=== PATIENT | male | born 1930 | race Caucasian/White ===

== ENCOUNTER 2016-10-29 14:23 | Emergency (ER) | payer OTHER, BC ==
[~2016-10-29] VITALS: Ht 170.2 cm; Wt 85.6 kg
[~2016-10-29 14:23] MED LIST: ACCUPRIL40 MG PO; ALLEGRA180 MG PO; ASPIRIN EC325 MG PO; ATORVASTATIN CA40 MG PO; Allegra PO; Ancef,Kefzol IV; BACLOFEN10 MG PO; BUMETANIDE0.5 MG PO; BUMEX0.5 MG PO; Bumex PO; CARDIZEM CD,CA240 MG PO; CARDIZEM CD,CA300 MG PO; CELEBREX200 MG PO; CENTRUM SILVER1 EAC3 PO; CLEOCIN300 MG PO; CLINDAMYCIN HC300 MG PO; CYANOCOBALAM1000 MCG PO; Cardizem CD,Cartia X PO; Centrum Silver,Certa PO; Claritin,Alavart PO; Colace PO; Cozaar PO; DILTIAZEM 24HR300 MG PO; ENDOCET 5-3251 EACH PO; Ecotrin PO; FERROUS SULFAT325 MG PO; Feosol PO; Flomax PO; HI-B12/Foliplex SL; HYDROCODON-ACE1 EAC7 PO; HYZAAR 100-21 TABLET PO; Hyzaar 100-25 PO; IRON325 MG PO; KEFLEX500 MG PO; KLOR-CON 1010 ME1 PO; LIPITOR40 MG PO; LITE COAT ASPI325 M1 PO; LO-DOSE ASPIRIN81 M1 PO; LOSARTAN POTAS100 MG PO; LOSARTAN-HCTZ1 EAC1 PO; Lipitor PO; Maxipime IV; Micro-K,K-Tab,K-Dur, PO; Mobic PO; OMEPRAZOLE20 MG PO; POTASSIUM CHLO10 ME4 PO; PRILOSEC20 MG PO; PRILOSEC40 MG PO; Percocet 5/325,Endoc PO; Phenergan PO; PriLOSEC PO; Protonix PO; QUINAPRIL HCL40 MG PO; RESTORIL15 MG PO; STOOL SOFTENER100 MG PO; SUPER MULTIVIT1 EACH PO; Senokot S,Pericolace PO; TAMSULOSIN HCL0.4 MG PO; TEMAZEPAM15 MG PO; TRAMADOL HCL50 MG PO; Theragran PO; Theragran-M,Centrum, PO; ULTRAM50 MG PO; VITAMIN D1000 UNIT PO; VITAMIN D31000 UNI2 PO; VITAMIN D31000 UNIT PO; Vancomycin IV; Vitamin D PO; ZOLOFT50 MG PO; Zoloft PO; celeBREX PO; keflex
[2016-10-29 15:36] LABS: COLOR BLOODY ((YELLOW)); SPECIFIC GRAVITY 1.021 (1.000-1.030)
[2016-10-29 15:37] LABS: ADD MIUA? YES; BILIRUBIN NEGATIVE; BLOOD LARGE; GLUCOSE (STRIP) NEGATIVE; KETONES NEGATIVE; LEUKOCYTES NEGATIVE; NITRITE NEGATIVE; PH, URINE 6.5 (5-8); PROTEIN (STRIP) 2000; UROBILINOGEN 0.2 MG/DL (0.2-1.0)
[2016-10-29 15:48] LABS: HEMATOCRIT 38.7 % (38.0-50.0); MCH 29.5 PG (29.0-34.0); MCHC 32.3 G/DL (30.0-36.0); MCV 91.3 FL (86-99); MEAN PLAT.VOLUME 11.1 uM^3 (9.0-12.4); PLATELET COUNT 143 K/uL (156-360); RBC DIS.WIDTH-CV 13.6 % (11.8-14.6); RBC DIS.WIDTH-SD 45.8 % (39-53); RED BLOOD COUNT 4.24 M/uL (4.00-5.50)
[2016-10-29 15:53] LABS: RED BLOOD CELLS TNTC /HPF (0-5); UCUL ADDED? YES
[2016-10-29 15:59] LABS: CHLORIDE 111 mEq/L (99-109); POTASSIUM 3.8 mEq/L (3.7-5.4); SODIUM 145 mEq/L (136-147)
[2016-10-29 16:01] LABS: GLUCOSE 106 mg/dL (70-99)
[2016-10-29 16:02] LABS: ANION GAP 9 MEQ/L (2-14)
[2016-10-29 16:03] LABS: TOTAL BILIRUBIN 0.4 mg/dL (0.0-1.0)
[2016-10-29 16:04] LABS: ALKALINE PHOSPHATASE 86 IU/L (3-129)
[2016-10-29 16:05] LABS: GFR ESTIMATE (CALCULATED) 41 mL/min/
[2016-10-29 16:06] LABS: UREA NITROGEN (BUN) 39 mg/dL (9-23)
[2016-10-29 20:24] VITALS: BP 118/63
== END 2016-10-29 20:25 | disposition home or self-care (01) ==
LOC: EME 14:23
DX: N20.0 Calculus of kidney (principal); R31.0 Gross hematuria; N17.9 Acute kidney failure, unspecified; K57.30 Diverticulosis of large intestine without perforation or abscess without bleeding; Z85.46 Personal history of malignant neoplasm of prostate; I10 Essential (primary) hypertension; E78.5 Hyperlipidemia, unspecified; Z96.653 Presence of artificial knee joint, bilateral; Z96.611 Presence of right artificial shoulder joint; Z87.891 Personal history of nicotine dependence; Z85.820 Personal history of malignant melanoma of skin
CPT/HCPCS: 74176; 80053; 81003; 85027; 87086; 99281; 99283

== ENCOUNTER 2016-12-01 14:11 | Emergency (ER) | payer OTHER, BC ==
[~2016-12-01] VITALS: Ht 172.7 cm; Wt 87.5 kg
[2016-12-01 15:09] LABS: HEMATOCRIT 28.4 % (38.0-50.0); MCH 29.5 PG (29.0-34.0); MCV 92.2 FL (86-99); MEAN PLAT.VOLUME 10.2 uM^3 (9.0-12.4); PLATELET COUNT 155 K/uL (156-360); RBC DIS.WIDTH-CV 14.6 % (11.8-14.6); RBC DIS.WIDTH-SD 48.4 % (39-53); RED BLOOD COUNT 3.08 M/uL (4.00-5.50); WHITE BLOOD COUNT 7.6 K/uL (4.1-10.2)
[2016-12-01 15:17] LABS: CHLORIDE 110 mEq/L (99-109); POTASSIUM 3.9 mEq/L (3.7-5.4); SODIUM 140 mEq/L (136-147)
[2016-12-01 15:19] LABS: GLUCOSE 115 mg/dL (70-99)
[2016-12-01 15:20] LABS: ANION GAP 11 MEQ/L (2-14)
[2016-12-01 15:23] LABS: GFR ESTIMATE (CALCULATED) 51 mL/min/
[2016-12-01 15:24] LABS: UREA NITROGEN (BUN) 25 mg/dL (9-23)
[2016-12-01 15:32] LABS: ADD MIUA? YES; BILIRUBIN MODERATE; BLOOD LARGE; COLOR RED ((YELLOW)); GLUCOSE (STRIP) NEGATIVE; KETONES NEGATIVE; NITRITE NEGATIVE; PH, URINE 6.5 (5-8); PROTEIN (STRIP) 300; UROBILINOGEN 0.2 MG/DL (0.2-1.0)
[2016-12-01 15:36] LABS: ICTOTEST POSITIVE
[2016-12-01 15:43] LABS: RED BLOOD CELLS TNTC /HPF (0-5); UCUL ADDED? YES
[2016-12-01 15:48] LABS: TOTAL BILIRUBIN 0.3 mg/dL (0.0-1.0)
[2016-12-01 15:49] LABS: ALKALINE PHOSPHATASE 88 IU/L (3-129)
[2016-12-01 15:51] LABS: DIRECT BILIRUBIN 0.2 mg/dL (0.0-0.3)
[2016-12-01 18:05] VITALS: BP 149/72
== END 2016-12-01 18:06 | disposition home or self-care (01) ==
LOC: EME 14:11
DX: R31.9 Hematuria, unspecified (principal); E86.0 Dehydration; Z85.46 Personal history of malignant neoplasm of prostate; E78.5 Hyperlipidemia, unspecified; F32.9 Major depressive disorder, single episode, unspecified; I10 Essential (primary) hypertension; Z85.820 Personal history of malignant melanoma of skin; Z96.611 Presence of right artificial shoulder joint; Z96.653 Presence of artificial knee joint, bilateral; Z92.3 Personal history of irradiation; Z87.891 Personal history of nicotine dependence; Z88.8 Allergy status to other drugs, medicaments and biological substances
CPT/HCPCS: 80048; 80076; 81003; 85027; 86850; 86900; 86901; 87086; 99281; 99284; J7030

== ENCOUNTER → 2016-12-18 | Outpatient (CLI) | payer MEDICARE, BC | END | disposition home or self-care (01) | LOC: CDC 11:11 | DX: Z01.810 Encounter for preprocedural cardiovascular examination (principal); R31.0 Gross hematuria; R00.1 Bradycardia, unspecified | CPT/HCPCS: 93000 ==

== ENCOUNTER 2017-05-25 03:09 | Emergency (ER) | payer OTHER, BC ==
[~2017-05-25] VITALS: Ht 170.2 cm; Wt 88.9 kg
[~2017-05-25 03:09] MED LIST changes: +AMLODIPINE BESYL5 MG PO; +ATENOLOL25 MG PO
[2017-05-25 04:30] LABS: HEMATOCRIT 27.6 % (38.0-50.0); HEMOGLOBIN 9.1 G/DL (12.5-16.6); MCH 29.8 PG (29.0-34.0); MCV 90.5 FL (86-99); PLATELET COUNT 173 K/uL (156-360); RBC DIS.WIDTH-CV 15.7 % (11.8-14.6); RBC DIS.WIDTH-SD 51.8 % (39-53); RED BLOOD COUNT 3.05 M/uL (4.00-5.50); WHITE BLOOD COUNT 8.3 K/uL (4.1-10.2)
[2017-05-25 04:39] LABS: CHLORIDE 107 mEq/L (99-109); POTASSIUM 3.6 mEq/L (3.7-5.4); SODIUM 142 mEq/L (136-147)
[2017-05-25 04:40] LABS: GLUCOSE 86 mg/dL (70-99)
[2017-05-25 04:44] LABS: CREATININE 1.5 mg/dL (0.6-1.3); GFR ESTIMATE (CALCULATED) 47 mL/min/ (58.99-99999)
[2017-05-25 04:45] LABS: UREA NITROGEN (BUN) 29 mg/dL (9-23)
[2017-05-25 05:43] LABS: APPEARANCE TURBID ((CLEAR)); BILIRUBIN SMALL; BLOOD LARGE; COLOR BLOODY ((YELLOW)); GLUCOSE (STRIP) NEGATIVE; KETONES NEGATIVE; LEUKOCYTES NEGATIVE; NITRITE NEGATIVE; PH, URINE 6.5 (5-8); PROTEIN (STRIP) 100; SPECIFIC GRAVITY 1.012 (1.000-1.030); UROBILINOGEN 0.2 MG/DL (0.2-1.0)
[2017-05-25 05:50] LABS: RED BLOOD CELLS TNTC /HPF (0-5); UCUL ADDED? YES
[2017-05-25 06:07] VITALS: BP 149/78
== END 2017-05-25 06:08 | disposition home or self-care (01) ==
LOC: EME 03:09
PROVIDERS: Emergency Medicine
DX: R33.9 Retention of urine, unspecified (principal); R31.9 Hematuria, unspecified; D64.9 Anemia, unspecified; Z87.440 Personal history of urinary (tract) infections; E78.5 Hyperlipidemia, unspecified; F32.9 Major depressive disorder, single episode, unspecified; I10 Essential (primary) hypertension; M19.90 Unspecified osteoarthritis, unspecified site; Z85.820 Personal history of malignant melanoma of skin; Z87.891 Personal history of nicotine dependence; Z96.653 Presence of artificial knee joint, bilateral
CPT/HCPCS: 80048; 81003; 85027; 87086; 99281; 99285

== ENCOUNTER 2017-06-25 17:12 | Emergency (ER) | payer OTHER, BC ==
[~2017-06-25] VITALS: Ht 170.2 cm; Wt 86.3 kg
[2017-06-25 18:00] LABS: BASOPHIL (%) 0.6 % (0-1); BASOPHIL COUNT 0.1 K/uL (0-0.1); EOSINOPHIL (%) 3.4 % (0-5); EOSINOPHIL COUNT 0.3 K/uL (0-0.3); HEMATOCRIT 23.1 % (38.0-50.0); HEMOGLOBIN 7.4 G/DL (12.5-16.6); IMMATURE GRANULOCYTE (%) 0.4 % (0.0-0.7); LYMPHOCYTE (%) 26.9 % (15-42); LYMPHOCYTE COUNT 2.1 K/uL (1.0-2.8); MCH 30.1 PG (29.0-34.0); MCV 93.9 FL (86-99); MONOCYTE (%) 6.6 % (3-12); MONOCYTE COUNT 0.5 K/uL (0-0.8); NEUTROPHIL (%) 62.1 % (45-76); NEUTROPHIL COUNT 4.9 K/uL (1.8-6.4); PLATELET COUNT 172 K/uL (156-360); RBC DIS.WIDTH-SD 58.2 % (39-53); RED BLOOD COUNT 2.46 M/uL (4.00-5.50); WHITE BLOOD COUNT 7.9 K/uL (4.1-10.2)
[2017-06-25 18:10] LABS: CHLORIDE 108 mEq/L (99-109); POTASSIUM 3.6 mEq/L (3.7-5.4); SODIUM 140 mEq/L (136-147)
[2017-06-25 18:12] LABS: GLUCOSE 96 mg/dL (70-99)
[2017-06-25 18:15] LABS: CREATININE 1.3 mg/dL (0.6-1.3); GFR ESTIMATE (CALCULATED) 56 mL/min/ (58.99-99999)
[2017-06-25 18:16] LABS: UREA NITROGEN (BUN) 30 mg/dL (9-23)
[2017-06-25 18:22] LABS: TROP-I INTERPRETATION NEGATIVE; TROPONIN-I 0.02 ng/mL (0.0-0.30)
[2017-06-25 20:40] LABS: APPEARANCE CLOUDY ((CLEAR)); BILIRUBIN NEGATIVE; BLOOD LARGE; GLUCOSE (STRIP) NEGATIVE; KETONES 5; LEUKOCYTES NEGATIVE; NITRITE NEGATIVE; PROTEIN (STRIP) 100; SPECIFIC GRAVITY 1.011 (1.000-1.030); UROBILINOGEN 0.2 MG/DL (0.2-1.0)
[2017-06-25 20:41] LABS: COLOR RED ((YELLOW))
[2017-06-25 20:52] LABS: RED BLOOD CELLS TNTC /HPF (0-5)
[2017-06-25 21:12] VITALS: BP 131/67
== END 2017-06-25 21:25 | disposition home or self-care (01) ==
LOC: EME 17:12
PROVIDERS: Physician Assistant
DX: E86.0 Dehydration (principal); I45.10 Unspecified right bundle-branch block; I70.0 Atherosclerosis of aorta; R31.9 Hematuria, unspecified; I12.9 Hypertensive chronic kidney disease with stage 1 through stage 4 chronic kidney disease, or unspecified chronic kidney disease; N18.9 Chronic kidney disease, unspecified; E78.5 Hyperlipidemia, unspecified; Z85.46 Personal history of malignant neoplasm of prostate; Z85.820 Personal history of malignant melanoma of skin; Z92.3 Personal history of irradiation; Z96.611 Presence of right artificial shoulder joint; Z87.891 Personal history of nicotine dependence
CPT/HCPCS: 71046; 80048; 81003; 84484; 85025 91; 93005; 99281; 99285

== ENCOUNTER 2017-07-02 15:53 | Emergency (ER) | payer OTHER, BC ==
[~2017-07-02] VITALS: Ht 170.2 cm; Wt 88.8 kg
[2017-07-02] VITALS (8 sets, daily range): BP systolic 98–138; BP diastolic 56–74
[2017-07-02 16:37] LABS: MCHC 31.8 G/DL (30.0-36.0); MCV 97.3 FL (86-99); PLATELET COUNT 174 K/uL (156-360); RBC DIS.WIDTH-CV 17.7 % (11.8-14.6); RBC DIS.WIDTH-SD 62.4 % (39-53); RED BLOOD COUNT 2.26 M/uL (4.00-5.50); WHITE BLOOD COUNT 9.2 K/uL (4.1-10.2)
[2017-07-02 16:56] LABS: CHLORIDE 110 MEQ/L (99-109); POTASSIUM 3.7 MEQ/L (3.7-5.4); SODIUM 142 MEQ/L (136-147)
[2017-07-02 17:01] LABS: CREATININE 1.5 MG/DL (0.6-1.3); GFR ESTIMATE (CALCULATED) 47 mL/min/ (58.99-99999); UREA NITROGEN (BUN) 32 mg/dL (9-23)
[2017-07-02 17:03] LABS: GLUCOSE 148 mg/dL (70-99)
[2017-07-02 17:06] LABS: TROP-I INTERPRETATION NEGATIVE; TROPONIN-I < 0.01 ng/mL (0.0-0.30)
[2017-07-03 00:12] VITALS: BP 135/75
[2017-07-03 00:37] VITALS: BP 160/92
== END 2017-07-03 00:41 | disposition home or self-care (01) ==
LOC: EME 15:53
PROVIDERS: Nurse Practitioner Family
PROC: 30233N1 Transfusion of Nonautologous Red Blood Cells into Peripheral Vein, Percutaneous Approach (ICD-10-PCS; principal; 2017-07-02)
DX: D64.9 Anemia, unspecified (principal); Z98.890 Other specified postprocedural states; R42 Dizziness and giddiness; R53.1 Weakness; R00.1 Bradycardia, unspecified; I44.0 Atrioventricular block, first degree; I45.10 Unspecified right bundle-branch block; R94.31 Abnormal electrocardiogram [ECG] [EKG]; E78.5 Hyperlipidemia, unspecified; N30.41 Irradiation cystitis with hematuria; M19.90 Unspecified osteoarthritis, unspecified site; F32.9 Major depressive disorder, single episode, unspecified; Z79.891 Long term (current) use of opiate analgesic; Z87.891 Personal history of nicotine dependence; Z85.46 Personal history of malignant neoplasm of prostate; Z85.820 Personal history of malignant melanoma of skin; Z92.3 Personal history of irradiation; Z96.611 Presence of right artificial shoulder joint; Z96.653 Presence of artificial knee joint, bilateral; Z88.8 Allergy status to other drugs, medicaments and biological substances
CPT/HCPCS: 80048 91; 84484; 85027; 86850; 86900; 86901; 86920; 93005; 99281; 99285; J7030; P9016

== ENCOUNTER 2017-08-29 10:50 | Inpatient (IN) | payer OTHER, BC ==
[~2017-08-29] VITALS: Ht 165.1 cm; Wt 85.7 kg
[2017-08-29 12:29] LABS: APPEARANCE CLOUDY ((CLEAR)); BILIRUBIN NEGATIVE; BLOOD LARGE; COLOR AMBER ((YELLOW)); GLUCOSE (STRIP) NEGATIVE; KETONES NEGATIVE; LEUKOCYTES LARGE; NITRITE NEGATIVE; PROTEIN (STRIP) 100; SPECIFIC GRAVITY 1.015 (1.000-1.030); UROBILINOGEN 0.2 MG/DL (0.2-1.0)
[2017-08-29 12:54] LABS: EPITHELIAL CELLS NONE SEEN /HPF; WHITE BLOOD CELLS TNTC /HPF (0-5)
[2017-08-29 12:55] LABS: BACTERIA 1+ /HPF; MUCUS NONE SEEN /LPF; UCUL ADDED? YES
[2017-08-29 12:57] LABS: HEMATOCRIT 26.8 % (38.0-50.0); HEMOGLOBIN 8.6 G/DL (12.5-16.6); MCH 26.5 PG (29.0-34.0); MCHC 32.1 G/DL (30.0-36.0); MCV 82.5 FL (86-99); PLATELET COUNT 222 K/uL (156-360); RBC DIS.WIDTH-CV 17.9 % (11.8-14.6); RBC DIS.WIDTH-SD 54.7 % (39-53); RED BLOOD COUNT 3.25 M/uL (4.00-5.50); WHITE BLOOD COUNT 26.6 K/uL (4.1-10.2)
[2017-08-29 13:08] LABS: CHLORIDE 106 mEq/L (99-109); POTASSIUM 4.3 mEq/L (3.7-5.4); SODIUM 137 mEq/L (136-147)
[2017-08-29 13:09] LABS: GLUCOSE 102 mg/dL (70-99)
[2017-08-29 13:13] LABS: CREATININE 1.9 mg/dL (0.6-1.3); GFR ESTIMATE (CALCULATED) 36 mL/min/ (58.99-99999)
[2017-08-29 13:14] LABS: UREA NITROGEN (BUN) 32 mg/dL (9-23)
[2017-08-29] MEDS ORDERED: MIRTAZAPINE15 MG PO (14:08)
[2017-08-29] MEDS ORDERED: DOXEPIN HCL10 MG PO (14:13)
[2017-08-29] MEDS ORDERED: WARFARIN SODIUM2 MG PO (14:13)
[2017-08-29] MEDS ORDERED: K-DUR20 MEQ PO (14:13)
[2017-08-29 16:25] VITALS: BP 118/68
[2017-08-29 16:33] LABS: INTER. NORMALIZED RATIO 2.2
[2017-08-29 19:32] VITALS: BP 150/70
[2017-08-30] VITALS (7 sets, daily range): BP systolic 110–143; BP diastolic 62–78
[2017-08-30 05:52] LABS: HEMOGLOBIN 7.7 G/DL (12.5-16.6); MCH 25.7 PG (29.0-34.0); MCHC 30.8 G/DL (30.0-36.0); MCV 83.3 FL (86-99); PLATELET COUNT 230 K/uL (156-360); RBC DIS.WIDTH-CV 18.2 % (11.8-14.6); RBC DIS.WIDTH-SD 55.3 % (39-53)
[2017-08-30 05:55] LABS: INTER. NORMALIZED RATIO 2.4
[2017-08-30 06:26] LABS: ALBUMIN 2.4 G/DL (3.2-4.8); ALKALINE PHOSPHATASE 117 IU/L (3-129); ALT (GPT) 15 IU/L (3-49); AST (GOT) 23 IU/L (2-34); CHLORIDE 107 MEQ/L (99-109); CREATININE 1.9 MG/DL (0.6-1.3); DIRECT BILIRUBIN 0.1 mg/dL (0.0-0.3); GFR ESTIMATE (CALCULATED) 36 mL/min/ (58.99-99999); GLUCOSE 107 mg/dL (70-99); SODIUM 138 MEQ/L (136-147); TOTAL BILIRUBIN 0.3 MG/DL (0.0-1.0); TOTAL PROTEIN 5.1 G/DL (6.4-8.3); UREA NITROGEN (BUN) 33 mg/dL (9-23)
[2017-08-30 15:53] LABS: HEMOGLOBIN 8.4 G/DL (12.5-16.6); MCV 82.3 FL (86-99)
[2017-08-31 05:37] LABS: HEMATOCRIT 25.8 % (38.0-50.0); MCH 25.7 PG (29.0-34.0); PLATELET COUNT 255 K/uL (156-360); RBC DIS.WIDTH-CV 18.2 % (11.8-14.6); RBC DIS.WIDTH-SD 55.1 % (39-53); RED BLOOD COUNT 3.11 M/uL (4.00-5.50); WHITE BLOOD COUNT 17.6 K/uL (4.1-10.2)
[2017-08-31 05:39] LABS: INTER. NORMALIZED RATIO 2.7
[2017-08-31 05:57] LABS: ALBUMIN 2.4 G/DL (3.2-4.8); CHLORIDE 109 MEQ/L (99-109); CREATININE 1.7 MG/DL (0.6-1.3); GFR ESTIMATE (CALCULATED) 41 mL/min/ (58.99-99999); GLUCOSE 148 mg/dL (70-99); PHOSPHORUS 3.4 mg/dL (2.5-4.9); POTASSIUM 4.2 MEQ/L (3.7-5.4); SODIUM 138 MEQ/L (136-147); UREA NITROGEN (BUN) 28 mg/dL (9-23)
[2017-08-31 08:07] VITALS: BP 154/81
[2017-08-31 13:20] LABS: THYROTROPIN (TSH) 2.6 MIU/L (0.4-5.5)
[2017-08-31 15:42] VITALS: BP 115/66
[2017-08-31 16:00] VITALS: BP 115/66
[2017-09-01] VITALS: BP 144/73
[2017-09-01 05:17] LABS: HEMATOCRIT 27.3 % (38.0-50.0); HEMOGLOBIN 8.3 G/DL (12.5-16.6); MCH 25.1 PG (29.0-34.0); MCHC 30.4 G/DL (30.0-36.0); MCV 82.5 FL (86-99); PLATELET COUNT 288 K/uL (156-360); RBC DIS.WIDTH-CV 18.1 % (11.8-14.6); RED BLOOD COUNT 3.31 M/uL (4.00-5.50); WHITE BLOOD COUNT 18.9 K/uL (4.1-10.2)
[2017-09-01 05:19] LABS: INTER. NORMALIZED RATIO 3.6
[2017-09-01 05:50] LABS: CHLORIDE 106 MEQ/L (99-109); CREATININE 1.5 MG/DL (0.6-1.3); GFR ESTIMATE (CALCULATED) 47 mL/min/ (58.99-99999); POTASSIUM 4.5 MEQ/L (3.7-5.4); SODIUM 139 MEQ/L (136-147); UREA NITROGEN (BUN) 24 mg/dL (9-23)
[2017-09-01 05:59] LABS: GLUCOSE 77 mg/dL (70-99)
[2017-09-01 07:50] VITALS: BP 151/78
[2017-09-01 16:00] VITALS: BP 139/70
[2017-09-01 23:54] VITALS: BP 136/72
[2017-09-02 06:02] LABS: BASOPHIL (%) 0.5 % (0-1); BASOPHIL COUNT 0.1 K/uL (0-0.1); EOSINOPHIL (%) 4.9 % (0-5); EOSINOPHIL COUNT 0.9 K/uL (0-0.3); HEMATOCRIT 26.1 % (38.0-50.0); IMMATURE GRANULOCYTE (%) 2.2 % (0.0-0.7); LYMPHOCYTE (%) 10.1 % (15-42); LYMPHOCYTE COUNT 1.8 K/uL (1.0-2.8); MCH 24.9 PG (29.0-34.0); MCHC 30.7 G/DL (30.0-36.0); MCV 81.3 FL (86-99); MONOCYTE (%) 6.5 % (3-12); MONOCYTE COUNT 1.1 K/uL (0-0.8); NEUTROPHIL (%) 75.8 % (45-76); NEUTROPHIL COUNT 13.2 K/uL (1.8-6.4); NRBC (%) 0.1 /100 WBC (0-0); PLATELET COUNT 311 K/uL (156-360); RBC DIS.WIDTH-SD 54.2 % (39-53); RED BLOOD COUNT 3.21 M/uL (4.00-5.50); WHITE BLOOD COUNT 17.4 K/uL (4.1-10.2)
[2017-09-02 06:07] LABS: INTER. NORMALIZED RATIO 4.1
[2017-09-02 06:32] LABS: CHLORIDE 106 MEQ/L (99-109); CREATININE 1.3 MG/DL (0.6-1.3); GFR ESTIMATE (CALCULATED) 55 mL/min/ (58.99-99999); GLUCOSE 80 mg/dL (70-99); SODIUM 140 MEQ/L (136-147); UREA NITROGEN (BUN) 22 mg/dL (9-23)
[2017-09-02 08:02] VITALS: BP 145/73
[2017-09-02 11:29] VITALS: BP 141/78
[2017-09-02 15:47] VITALS: BP 145/68
[2017-09-03 00:46] VITALS: BP 165/82
[2017-09-03 06:50] LABS: BASOPHIL (%) 0.5 % (0-1); BASOPHIL COUNT 0.1 K/uL (0-0.1); EOSINOPHIL (%) 6.1 % (0-5); EOSINOPHIL COUNT 0.9 K/uL (0-0.3); HEMATOCRIT 25.8 % (38.0-50.0); HEMOGLOBIN 8.1 G/DL (12.5-16.6); IMMATURE GRANULOCYTE (%) 4.1 % (0.0-0.7); LYMPHOCYTE COUNT 1.5 K/uL (1.0-2.8); MCH 25.2 PG (29.0-34.0); MCHC 31.4 G/DL (30.0-36.0); MCV 80.1 FL (86-99); MONOCYTE (%) 8.5 % (3-12); MONOCYTE COUNT 1.3 K/uL (0-0.8); NEUTROPHIL (%) 70.8 % (45-76); NEUTROPHIL COUNT 10.9 K/uL (1.8-6.4); NRBC (%) 0.2 /100 WBC (0-0); PLATELET COUNT 334 K/uL (156-360); RBC DIS.WIDTH-CV 18.3 % (11.8-14.6); RBC DIS.WIDTH-SD 53.8 % (39-53); RED BLOOD COUNT 3.22 M/uL (4.00-5.50); WHITE BLOOD COUNT 15.4 K/uL (4.1-10.2)
[2017-09-03 06:57] LABS: INTER. NORMALIZED RATIO 4.4
[2017-09-03 07:02] VITALS: BP 157/88
[2017-09-03 15:30] VITALS: BP 151/76
[2017-09-03 20:56] LABS: HEMATOCRIT 24.8 % (38.0-50.0); HEMOGLOBIN 7.8 G/DL (12.5-16.6)
[2017-09-04 00:26] VITALS: BP 142/73
[2017-09-04 05:40] LABS: BASOPHIL (%) 0.5 % (0-1); BASOPHIL COUNT 0.1 K/uL (0-0.1); EOSINOPHIL (%) 4.7 % (0-5); EOSINOPHIL COUNT 0.8 K/uL (0-0.3); HEMATOCRIT 25.3 % (38.0-50.0); HEMOGLOBIN 7.9 G/DL (12.5-16.6); IMMATURE GRANULOCYTE (%) 4.7 % (0.0-0.7); LYMPHOCYTE COUNT 2.1 K/uL (1.0-2.8); MCH 25.1 PG (29.0-34.0); MCHC 31.2 G/DL (30.0-36.0); MCV 80.3 FL (86-99); MONOCYTE (%) 8.4 % (3-12); MONOCYTE COUNT 1.5 K/uL (0-0.8); NEUTROPHIL (%) 69.7 % (45-76); NEUTROPHIL COUNT 12.3 K/uL (1.8-6.4); NRBC (%) 0.1 /100 WBC (0-0); PLATELET COUNT 306 K/uL (156-360); RBC DIS.WIDTH-CV 18.3 % (11.8-14.6); RBC DIS.WIDTH-SD 53.8 % (39-53); RED BLOOD COUNT 3.15 M/uL (4.00-5.50); WHITE BLOOD COUNT 17.6 K/uL (4.1-10.2)
[2017-09-04 06:23] LABS: INTER. NORMALIZED RATIO 4.6
[2017-09-04 07:08] VITALS: BP 174/84
[2017-09-04 15:08] VITALS: BP 159/77
[2017-09-04 23:36] VITALS: BP 147/80
[2017-09-05 05:47] LABS: BASOPHIL (%) 0.6 % (0-1); BASOPHIL COUNT 0.1 K/uL (0-0.1); EOSINOPHIL (%) 4.8 % (0-5); EOSINOPHIL COUNT 0.8 K/uL (0-0.3); HEMATOCRIT 25.7 % (38.0-50.0); IMMATURE GRANULOCYTE (%) 4.1 % (0.0-0.7); LYMPHOCYTE (%) 11.9 % (15-42); LYMPHOCYTE COUNT 2.1 K/uL (1.0-2.8); MCH 24.8 PG (29.0-34.0); MCHC 31.1 G/DL (30.0-36.0); MCV 79.8 FL (86-99); MONOCYTE (%) 7.4 % (3-12); MONOCYTE COUNT 1.3 K/uL (0-0.8); NEUTROPHIL (%) 71.2 % (45-76); NEUTROPHIL COUNT 12.6 K/uL (1.8-6.4); NRBC (%) 0.1 /100 WBC (0-0); PLATELET COUNT 355 K/uL (156-360); RBC DIS.WIDTH-CV 18.4 % (11.8-14.6); RBC DIS.WIDTH-SD 53.6 % (39-53); RED BLOOD COUNT 3.22 M/uL (4.00-5.50); WHITE BLOOD COUNT 17.7 K/uL (4.1-10.2)
[2017-09-05 06:06] LABS: INTER. NORMALIZED RATIO 3.3
[2017-09-05 06:21] LABS: CHLORIDE 104 MEQ/L (99-109); CREATININE 1.2 MG/DL (0.6-1.3); GFR ESTIMATE (CALCULATED) > 59 mL/min/ (58.99-99999); GLUCOSE 72 mg/dL (70-99); POTASSIUM 4.2 MEQ/L (3.7-5.4); SODIUM 141 MEQ/L (136-147); UREA NITROGEN (BUN) 18 mg/dL (9-23)
[2017-09-05 07:50] VITALS: BP 144/88
== END 2017-09-05 13:03 | disposition home or self-care (01) | DRG 690 ==
LOC: EME 10:50 → 5SOUTH 13:59 → EDOF 13:59 → ENRESERV 14:00 → 5SOUTH 15:52
PROVIDERS: Emergency Medicine; Hospitalist; Internal Medicine; Physician Assistant Medical; Student in an Organized Health Care Education/Training Program
DX: N10 Acute pyelonephritis (principal); N17.9 Acute kidney failure, unspecified; R33.9 Retention of urine, unspecified; I12.9 Hypertensive chronic kidney disease with stage 1 through stage 4 chronic kidney disease, or unspecified chronic kidney disease; N28.1 Cyst of kidney, acquired; E78.5 Hyperlipidemia, unspecified; N18.3 Chronic kidney disease, stage 3 (moderate); Z96.653 Presence of artificial knee joint, bilateral; Z85.46 Personal history of malignant neoplasm of prostate; Z92.3 Personal history of irradiation; Z86.711 Personal history of pulmonary embolism; Z87.891 Personal history of nicotine dependence; Z85.820 Personal history of malignant melanoma of skin; Z79.01 Long term (current) use of anticoagulants; Z74.01 Bed confinement status; J98.11 Atelectasis; R79.1 Abnormal coagulation profile; D63.1 Anemia in chronic kidney disease; Z79.899 Other long term (current) drug therapy; N40.1 Benign prostatic hyperplasia with lower urinary tract symptoms
CPT/HCPCS: 71045; 74176; 80048; 80069; 80076; 81003; 82607; 82746; 83605; 84443; 85014; 85018; 85025; 85027; 85610; 87040; 87086; 87449; 87641; 93005; 97530 GO; 99281; 99285; J0456; J0696; J7030